=== PATIENT | female | born 2000 | race Caucasian/White ===

== ENCOUNTER 2018-04-30 20:54 | Emergency (ER) | payer OTHER ==
[2018-04-30] MEDS ORDERED: IBUPROFEN 600 MG TAB PO ONE (21:12)
[2018-04-30] MEDS ORDERED: ACETAMINOPHEN 500 MG TAB PO ONE (21:12)
--- NOTE | 2018-04-30 21:25 | EDPHY ---
H & P Time Seen by Provider: 04/30/18 21:01 HPI/ROS: This patient fell while skateboarding in a skateboard park shortly prior to arrival in complains of 8/10 pain to the left 4th finger with obvious deformity. She also complains of moderate left infrapatellar pain that worsens with movement. She also struck her nose and upper lip but denies any significant pain to those areas. She has very superficial abrasions to the lip and nose from that fall. She came here by private car denies any other complaints. She has not taken any medications for her injuries prior to arrival. ROS: Constitutional: She felt well prior to the fall Neuro: Mild tingling the affected finger but no nohemy numbness. She denies any loss of consciousness. She was not dazed. She has no confusion. HEENT: She denies any bony pain or nose. No other facial injuries Musculoskeletal: No midline back or neck pain Pulmonary: No chest wall pain or shortness of breath Cardiovascular: No complaints integumentary: Abrasions as per HPI. Otherwise negative no laceration to the affected finger. 7 point ROS is otherwise Smoking Status: Never smoked Physical Exam: Physical exam: Vital signs are normal General: Patient is in no acute distress. HEENT: Is no external evidence of trauma on exam. Nose atraumatic except for nonbleeding superficial abrasion. Ears: Clear bilaterally with no hemotympanum. Oropharynx: No dental trauma or malocclusion. No intraoral lacerations. There is a superficial abrasion to the upper lip with no full- thickness laceration no active bleeding. Eyes: Pupils are equal and reactive to light. Extraocular motions are intact. Optic fundi: Clear with no papilledema or hemorrhage. Neck: Trachea is midline with no stridor. The patient has no midline neck tenderness and retains a full range of motion without increase in pain. Lungs: Clear to auscultation bilaterally Cardiac: Regular rate and rhythm no murmur gallop or rub. Chest: Nontender. Abdomen: Soft nontender no organomegaly Back: Nontender Extremities: Atraumatic except for left hand the knee Left hand: Patient has obvious deformity to left 4th finger with evidence of dorsal dislocation at the PIP joint. He has hyper extension at that joint but still neurovascular intact in the affected finger. She has limited range of motion in fact can't move it due to the deformity. Left knee: Patient has infrapatellar swelling, tenderness and ecchymosis. No laxity on Robert's exam, varus or valgus stress no increased pain with those maneuvers. She is able to extend the knee versus resistance without difficulty. Neuro: GCS of 15. Cranial nerves II through XII intact. No sensory or motor deficits are appreciated. Initial differential diagnosis: Knee hematoma, patellar fracture, finger dislocation, finger fracture Constitutional: Initial Vital Signs Heart Rate 72 04/30/18 21:04 Respiratory Rate 18 04/30/18 21:04 Blood Pressure 106/74 04/30/18 21:04 O2 Sat (%) 94 04/30/18 21:04 O2 Delivery Mode Room Air Allergies/Adverse Reactions: No Known Allergies Allergy (Unverified 04/30/18 21:04) Home Medications: Medication Instructions Recorded NK [No Known Home Meds] 04/30/18 MDM/Departure - MDM Diagnostics: Three view finger x-ray: Dorsal dislocation at the PIP joint of the 4th finger without fractures by my interpretation Post reduction film: Positive anatomic reduction without fractures by my interpretation. Knee x-rays: Infrapatellar hematoma but no fractures by my interpretation Imaging Results: Imaging Impressions Finger X-Ray 04/30/18 21:04 Impression: Dislocation at the level of the proximal interphalangeal joint. Knee X-Ray 04/30/18 21:05 Impression: Negative for fracture. Soft tissue swelling is seen. Finger X-Ray 04/30/18 22:19 Impression: Anatomic alignment following reduction. Imaging: I viewed and interpreted images myself Procedures: Closed reduction of finger dislocation: After verbal consent I was able to easily reduce the patient's dislocated 4th left finger by simple traction and brief hyper extension. Patient tolerated this quite well without any difficulties or complications. She was neurovascularly intact post reduction. She was offered digital block anesthesia prior to the procedure but was comfortable proceeding without it. Ring removal: Patient had a ring on the affected left 4th finger with a risk of neurovascular compromise, she agreed to removal of the ring. Trauma adarsh with a ring cutter attachment were used to easily remove the ring by myself. There were no complications to this procedure. Medications Given: Discontinued Medications Acetaminophen (Tylenol) 1,000 mg PO EDNOW ONE Stop: 04/30/18 21:13 Last Admin: 04/30/18 21:20 Dose: 1,000 mg Ibuprofen (Motrin) 600 mg PO EDNOW ONE Stop: 04/30/18 21:13 Last Admin: 04/30/18 21:19 Dose: 600 mg ED Course/Re-evaluation: Ice applied to the knee, ibuprofen Tylenol p.o. Splinting: A dorsal limit foam splint with finger in partial flexion was applied by our Dov mcbride with my supervision. Patient is neurovascularly intact post splint application Eulogio wrap is applied to the patient's infrapatellar hematoma - Depart Disposition: Home, Routine, Self-Care Clinical Impression: Dislocation, finger closed Qualifiers: Encounter type: initial encounter Qualified Code(s): S63.259A - Unspecified dislocation of unspecified finger, initial encounter Traumatic hematoma of left knee Qualifiers: Encounter type: initial encounter Qualified Code(s): S80.02XA - Contusion of left knee, initial encounter Condition: Good Instructions: Finger Dislocation (ED), Hematoma (ED) Additional Instructions: Diagnoses: 1. Finger dislocation 2. Traumatic knee hematoma Plan: Ice 20 min at a time 3 times a day to the knee until swelling resolved Avoid prolonged heat to the knee Eulogio wrap for comfort [id number] mg per 6 hr as needed for pain and swelling Tylenol in addition 650-1000 mg per 4-6 hours. Do not exceed 3000 mg in 24 hr Finger splint to the finger. Watch for any significantly increased swelling, numbness or tingling. If this occurs you to come back to have the ring cut off. Call Dr. Howe, hand specialist tomorrow to arrange follow-up appointment for early next week regarding her finger. Referrals: NONE *PRIMARY CARE P,. [Primary Care Provider] - As per Instructions Aldo Howe MD [Medical Doctor] - As per Instructions
[2018-04-30 22:46] VITALS: BP 121/76
== END 2018-04-30 22:47 | disposition home or self-care (01) ==
LOC: CED 20:54
PROC: 0RSXXZZ Reposition Left Finger Phalangeal Joint, External Approach (ICD-10-PCS; principal; 2018-04-30)
DX: S63.285A Dislocation of proximal interphalangeal joint of left ring finger, initial encounter (principal); S80.02XA Contusion of left knee, initial encounter; V00.131A Fall from skateboard, initial encounter; Y92.89 Other specified places as the place of occurrence of the external cause; Y99.8 Other external cause status; Y93.51 Activity, roller skating (inline) and skateboarding
CPT/HCPCS: 73140-PO; 73562-PO; L3925